=== PATIENT | male | born 1985 | race Caucasian/White ===

== ENCOUNTER 2022-05-07 15:24 | Emergency (ER) | payer MEDICAID ==
--- NOTE | 2022-05-07 15:46 | NUR ---
SECOND CALL FOR PT. UNABLE TO LOCATE PT IN WAITING ROOM.
--- NOTE | 2022-05-07 16:18 | NUR ---
UNABLE TO LOCATE PT IN WAITING ROOM. LEFT WITHOUT BEING TRIAGED
== END 2022-05-07 16:18 | disposition left against medical advice (07) ==
LOC: SED 15:24
DX: Z53.21 Procedure and treatment not carried out due to patient leaving prior to being seen by health care provider (principal)